=== PATIENT | male | born 1990 | race African-American/Black ===

== ENCOUNTER 2018-11-01 16:20 | Emergency (ER) | payer OTHER ==
--- NOTE | 2018-11-01 17:43 | ER Document Report ---
HPI - HPI Time Seen by Provider: 11/01/18 17:13 Pain Level: 2 Notes: Patient is a 28-year-old male who presents complaining of possible insect bite/sting to the left dorsal hand that occurred 2 hours ago. Patient states that he was working outside when he noticed a black that he had to move away from the one object by a stick. Patient then noticed pain to his hand, but did not see anything biting him at that time. Patient states that he has been marking the skin area and he has had increased swelling to the dorsal hand over the course of 2 hours. He has some tingling associated as well as pruritus. He is otherwise able to eat and drink without difficulty. Denies drug allergies. Denies IV drug abuse or history of MRSA. No other significant past medical history. Denies any headache, fever, neck pain, URI, sore throat, chest pain, palpitations, syncope, cough, shortness of breath, wheeze, dyspnea, abdominal pain, nausea/vomiting/diarrhea, urinary retention, dysuria, hematuria, loss of control of bowel or bladder, numbness/tingling, muscle paralysis/weakness. - ROS Systems Reviewed and Negative: Yes All other systems reviewed and negative - CONSTITUTIONAL Constitutional: DENIES: Fever, Chills Past Medical History - Social History Smoking Status: Never Smoker Frequency of alcohol use: Social Drug Abuse: None Family History: Reviewed & Not Pertinent Patient has suicidal ideation: No Patient has homicidal ideation: No Renal/ Medical History: Denies: Hx Peritoneal Dialysis Vertical Provider Document - CONSTITUTIONAL Agree With Documented VS: Yes Notes: PHYSICAL EXAMINATION: GENERAL: Well-appearing, well-nourished and in no acute distress. HEAD: Atraumatic, normocephalic. NECK: Normal range of motion, supple without lymphadenopathy. No midline tenderness. LUNGS: Breath sounds clear to auscultation bilaterally and equal. No wheezes rales or rhonchi. HEART: Regular rate and rhythm without murmurs, rubs, gallops. Musculoskeletal: Rt hand/wrist: + swelling noted to the dorsal hand without associated tenderness. + trace pitting edema noted. N/V intact distal. FROM to passive/active at the wrist. Strength 5+/5. No scaphoid tenderness. No streaks, fluctuance, or purulence. Extremities: No cyanosis, clubbing, or edema b/l. Peripheral pulses 2+. Capillary refill less than 3 seconds. NEUROLOGICAL: Normal speech, normal gait. Normal sensory, motor exams otherwise unremarkable PSYCH: Normal mood, normal affect. SKIN: see above. No rash Course - Re-evaluation Re-evalutation: 11/01/18 17:[address] Nieves who patient is in agreement with dispo/plan: Pt is an afebrile, well-hydrated, 28-year-old male who presents with an insect bite to his left dorsal hand, Possible black . Vitals are acceptable without significant tachycardia, tachypnea, or hypoxia. PE is otherwise unremarkable for any neurovascular compromise, obvious tendon/leg rupture, obvious fracture/dislocation, septic joint. There is no evidence of necrosis. Patient did meet criteria for mild envenomation without having any systemic symptoms associated. Patient is nontoxic-appearing and is tolerating p.o. without difficulty. Low suspicion for any necrotizing fasciitis, SJS, SSS, drug reaction, sepsis, meningitis, syphilis, Lyme disease, [place] spotted fever, or other systemic emergent condition at this time. Patient aware that condition can change from initial presentation and he needs to monitor symptoms closely and seek medical attention with any acute changes. I will send him home with a prescription for muscle relaxer, antibiotics. recheck with your PCM in 2 to 3 days. Return to the ED with any other worsening/concerning symptoms as reviewed. Patient is in agreement. - Vital Signs Vital signs: Temp Pulse Resp BP Pulse Ox 98.3 F 65 16 127/78 H 97 11/01/18 16:23 11/01/18 16:23 11/01/18 16:23 11/01/18 16:23 11/01/18 16:23 Discharge - Discharge Clinical Impression: Insect bite of left hand Qualifiers: Encounter type: initial encounter Qualified Code(s): S60.562A - Insect bite (nonvenomous) of left hand, initial encounter; W57.XXXA - Bitten or stung by nonvenomous insect and other nonvenomous arthropods, initial encounter Condition: Stable Disposition: HOME, SELF-CARE Instructions: Swollen Insect Bite or Sting ([facility]) Additional Instructions: Keep the skin clean Wash with soap and water Tylenol/ibuprofen if needed Cortisone/benadryl cream as needed Take medication as directed Monitor for any worsening symptoms Recheck with your PCM in 2-3 days Consider consult with General Surgeon for ongoing/worsening symptoms Return to the ED with any worsening symptoms and/or development of fever, headache, chest pain, palpitations, syncope, shortness of breath, trouble breathing, abdominal pain, n/v/d, abscess, purulent discharge, red streaks, worsening swelling, or other worsening symptoms that are concerning to you. Prescriptions: Cephalexin Monohydrate [Keflex 500 mg Capsule] 500 mg PO TID #30 capsule Methocarbamol [Robaxin] 500 mg PO TID PRN #12 tablet PRN Reason: Sulfamethoxazole/Trimethoprim [Bactrim Ds Tablet] 1 each PO BID #20 tablet Forms: Elevated Blood Pressure, Return to Work Referrals: [facility] [Provider Group] - Follow up as needed
[2018-11-01] MEDS ORDERED: DIPHENHYDRAMINE HCL 50 MG CAPSULE PO ONE (17:44)
[2018-11-01] MEDS ORDERED: FAMOTIDINE 20 MG TABLET PO ONE (17:44)
[2018-11-01] MEDS ORDERED: PREDNISONE 20 MG TABLET PO ONE (17:44)
[2018-11-01 18:08] VITALS: BP 143/90
[2018-11-01] MEDS ORDERED: DIPH/PERTUSS(ACELL)/TETANUS VAC/PF 0.5 ML SYR (>=10YO) IM ONE (18:25)
== END 2018-11-01 18:08 | disposition home or self-care (01) ==
LOC: ER 16:20
DX: S60.562A Insect bite (nonvenomous) of left hand, initial encounter (principal); W57.XXXA Bitten or stung by nonvenomous insect and other nonvenomous arthropods, initial encounter
CPT/HCPCS: 99281; J7512

== ENCOUNTER 2019-06-22 12:35 | Emergency (ER) | payer OTHER ==
[2019-06-22 15:13] VITALS: BP 122/81
--- NOTE | 2019-06-22 15:19 | ER Document Report ---
HPI - HPI Time Seen by Provider: 06/22/19 13:17 Pain Level: 2 Notes: Otherwise healthy 28-year-old male presenting to the emergency department chief complaint of sore throat and tonsil stones over the last 2 days. Patient reports history of tonsil stones. Patient denies any fever or abdominal pain. Reports he is able to swallow without difficulty. - CONSTITUTIONAL Constitutional: DENIES: Fever, Chills - EENT EENT: REPORTS: Sore Throat Past Medical History - General Information source: Patient - Social History Smoking Status: Never Smoker Frequency of alcohol use: None Drug Abuse: None Family History: Reviewed & Not Pertinent Patient has suicidal ideation: No Patient has homicidal ideation: No - Medical History Medical History: Negative Renal/ Medical History: Denies: Hx Peritoneal Dialysis Surgical Hx: Negative - Immunizations Immunizations up to date: Yes Vertical Provider Document - CONSTITUTIONAL Notes: PHYSICAL EXAMINATION: GENERAL: Well-appearing, well-nourished and in no acute distress. HEAD: Atraumatic, normocephalic. EYES: Pupils equal round extraocular movements intact, conjunctiva are normal. ENT: Nares patent, oropharynx clear, nonerythematous, no exudates noted, no evidence of peritonsillar abscess. NECK: Normal range of motion, no cervical lymphadenopathy. LUNGS: No respiratory distress Musculoskeletal: Normal range of motion NEUROLOGICAL: Normal speech, normal gait. PSYCH: Normal mood, normal affect. SKIN: Warm, Dry, normal turgor, no rashes or lesions noted. - INFECTION CONTROL TRAVEL OUTSIDE OF THE [place] IN LAST 30 DAYS: No Course - Re-evaluation Re-evalutation: Rapid strep was negative. Oropharynx clear, no exudates noted, no tonsillar swelling noted. Patient was concerned as he felt that we did not get a good swab. Another swab was sent which was also negative. Patient will be discharged home with recommendation to follow-up with ENT for his recurrent tonsil stones. - Vital Signs Vital signs: Temp Pulse Resp BP Pulse Ox 97.8 F 64 16 122/81 100 06/22/19 15:12 06/22/19 15:12 06/22/19 15:12 06/22/19 15:12 06/22/19 15:12 Discharge - Discharge Clinical Impression: Tonsil stone, Sore throat Condition: Stable Disposition: HOME, SELF-CARE Additional Instructions: The rapid strep test today was negative. I have prescribed you some prednisone, this should help with the inflammation. I have given you the phone number for an ear nose and throat doctor who may be able to help you, you will likely need a referral. Prescriptions: Prednisone [Deltasone 20 mg Tablet] 3 tab PO DAILY 5 Days #15 tablet Referrals: RAÚL PABON, [ASSOCIATE] - Follow up as needed
== END 2019-06-22 15:57 | disposition home or self-care (01) ==
LOC: ER 12:35
DX: J35.8 Other chronic diseases of tonsils and adenoids (principal); J02.9 Acute pharyngitis, unspecified
CPT/HCPCS: 87070; 87880; 99283

== ENCOUNTER 2019-09-17 19:26 | Emergency (ER) | payer OTHER ==
[2019-09-17] MEDS ORDERED: METHYLPREDNISOLONE INJ 125 MG/2 ML SDV IV ONE (19:41)
[2019-09-17] MEDS ORDERED: EPINEPHRINE INJ/PF 1 MG/1 ML AMPULE IM ONE (19:41)
[2019-09-17] MEDS ORDERED: DIPHENHYDRAMINE HCL 50 MG/ML VIAL IV ONE (19:41)
[2019-09-17] MEDS ORDERED: FAMOTIDINE INJ/PF 20 MG/2 ML SDV IV ONE (19:42)
--- NOTE | 2019-09-17 19:43 | ER Document Report ---
ED General - General Stated Complaint: POSS ALLERGIC REACTION Primary Care Provider: [facility] [Provider Group] - Follow up as needed Notes: With shortness of breath throat tightness swelling redness and skin itching for about 30 minutes escalating in severity onset about 30 minutes after eating shrimp. Having trouble breathing but not speaking and can swallow okay. No hives. Is never had this before. No known allergies. -[place] an in excellent health with no major medications or health problems. Brought directly back to room 1 from the waiting room secondary to anaphylaxis. TRAVEL OUTSIDE OF THE [place] IN LAST 30 DAYS: No - Related Data Allergies/Adverse Reactions: No Known Allergies Allergy (Verified 06/22/19 13:07) Past Medical History - Social History Smoking Status: Never Smoker Family History: Reviewed & Not Pertinent Renal/ Medical History: Denies: Hx Peritoneal Dialysis - Immunizations Immunizations up to date: Yes Review of Systems - Review of Systems Notes: REVIEW OF SYSTEMS GEN: Denies fever, chills, weight loss ENT: Throat swelling EYES: Denies blurry vision, eye pain, discharge CV: Denies chest pain, palpitations, edema RESP: Shortness of breath eezing GI: Denies abdominal pain, nausea, vomiting, diarrhea MSK: Denies joint pain/swelling, edema, SKIN: Denies rash, skin lesions LYMPH: Denies swollen glands/lymph nodes NEURO: Denies headache, focal weakness or numbness, dizziness PSYCH: Denies depression, suicidal or homicidal ideation PHYSICAL EXAMINATION General: No acute distress, well-nourished Head: Atraumatic, normocephalic ENT: Questionable soft palate edema? Normal tongue and lips but subjective trouble swallowing. Eyes: Conjunctiva normal, pupils equal, lids normal Neck: No JVD, supple, no guarding CVS: Normal rate, regular rhythm, no murmurs Resp: No resp distress, equal and normal breath sounds bilaterally GI: Nondistended, soft, no tenderness to palpation, no rebound or guarding Ext: No deformities, no edema, normal range of motion in upper and lower ext Back: No CVA or midline TTP Skin: Diffuse blanching erythroderma Lymphatic: No lymphadeopathy noted Neuro: Awake, alert. Face symmetric. GCS 15. Physical Exam - Vital signs Vitals: Temp Pulse Resp BP Pulse Ox 98.8 F 99 20 130/84 H 95 09/17/19 19:32 09/17/19 19:32 09/17/19 19:32 09/17/19 19:32 09/17/19 19:32 Course - Re-evaluation Re-evalutation: 09/17/19 19:43 Anaphylaxis, airway is clear at this time but has some subjective symptoms suggesting possible involvement. Admit immediately given 300 mcg of IM epi, IV was started for Benadryl Pepcid and Solu-Medrol. Will observe very carefully. No testing in the kit at this time. 09/17/19 21:31 Patient is observed carefully in the ED. Within about 20 minutes of receiving epinephrine any other medications he is erythroderma is resolved his symptoms are resolved and he feels excellent. He is actually asking to go home. After 2 hours I reassessed him and he looks well. A long discussion about his new shellfish allergy and the appropriate outpatient therapy return precautions and EpiPen usage. I have discussed with the patient there likely diagnosis, aftercare plan, follow-up plans and my usual and customary return precautions. They verbalized understanding of this. - Vital Signs Vital signs: Temp Pulse Resp BP Pulse Ox 98.8 F 99 19 129/75 H 97 09/17/19 19:32 09/17/19 19:32 09/17/19 21:01 09/17/19 21:00 09/17/19 21:01 Critical Care Note - Critical Care Note Total time excluding time spent on procedures (mins): 32 Comments: The above patient is critically ill. Not including procedures, but including direct re-evaluations, speaking with patient and/or consultants, interpreting results, and documenting, I spent the total amount of minute listed listed above on critical care time Discharge - Discharge Clinical Impression: Anaphylaxis Qualifiers: Encounter type: initial encounter Qualified Code(s): T78.2XXA - Anaphylactic shock, unspecified, initial encounter Disposition: HOME, SELF-CARE Instructions: Anaphylaxis Kit ([facility]) Prescriptions: Diphenhydramine HCl [Benadryl 50 mg Capsule] 1 cap PO Q6 PRN #14 capsule PRN Reason: Prednisone [Deltasone 20 mg Tablet] 40 mg PO DAILY #30 tablet Epinephrine [Epipen] 0.3 mg IJ ONCEP PRN #1 auto.injct PRN Reason: Famotidine [Pepcid 20 mg Tablet] 20 mg PO DAILY #12 tablet Referrals: [facility] [Provider Group] - Follow up as needed
[2019-09-17 21:05] VITALS: BP 129/75
== END 2019-09-17 21:31 | disposition home or self-care (01) ==
LOC: ER 19:26
DX: T78.2XXA Anaphylactic shock, unspecified, initial encounter (principal); R06.02 Shortness of breath
CPT/HCPCS: 99291; 96372; 96374; 96375; J1200; J0171; J2930; S0028